=== PATIENT | male | born 1955 | race Caucasian/White ===

== ENCOUNTER 2023-07-07 20:23 | Outpatient (CLI) | payer MEDICARE, SELFPAY ==
--- NOTE | 2023-07-19 14:23 | W.PM.SLEEP ---
Sleep Study Details Details Interpreting Provider: Ayo Date of Sleep Study: 07/07/23 Sleep Study Details: STUDY TYPE:? Hospital polysomnogram without CPAP ? BMI:? Not recorded ORDERING PROVIDER:? Ayo INDICATION:? Concerns about sleep apnea ? SLEEP SUMMARY:? 225.5 minutes total sleep time, efficiency 56.8, arousal index 63.1 RESPIRATORY SUMMARY:? Mean oxygen awake 90 asleep 90 minimum 83 77.3 minutes oxygen between 80 and 88% AHI 18.1 RDI 52.9. Supine AHI 44.5, nonsupine AHI 8.1 No supine REM sleep was seen PERIODIC LIMB MOVEMENTS OF SLEEP:? Index 2.9, index with arousal 0.5 CARDIAC:? Awake 78 asleep 76, occasional PVCs noted IMPRESSION:? Moderate to severe obstructive sleep apnea with an AHI of 18.1 an RDI of 52.9. No REM stage sleep was seen. There is supine position dependency RECOMMENDATION: AutoSet CPAP pressure 4-18 with follow-up.
== END 2023-07-07 20:24 | disposition home or self-care (01) ==
LOC: SLEEP 20:23
PROVIDERS: Visit Provider Otolaryngology
DX: G47.33 Obstructive sleep apnea (adult) (pediatric) (principal)
CPT/HCPCS: 95810